=== PATIENT | female | born 1985 | race American Indian/Alaskan Native ===

== ENCOUNTER 2021-08-12 15:37 | Outpatient (CLI) | payer OTHER ==
[2021-08-12 16:15] VITALS: BP 98/61
[2021-08-12] MEDS ORDERED: ONDANSETRON 4 MG/2 ML INJ IM SCH (17:34)
[2021-08-12] MEDS ORDERED: FAMOTIDINE 20 MG/2 ML INJ IV SCH (17:40)
[2021-08-12] MEDS ORDERED: LACTATED RINGERS 1,000 ML IV ONE (18:31)
[2021-08-12 18:53] LABS: Bacteria,Urine 1+ /HPF (Negative); Bilirubin,Urine NEG (Negative); Blood,Urine NEG (Negative); Color,Urine Yellow (Yellow); Protein,Urine <15 mg/dL mg/dL (Negative); Urobilinogen,Urine < 2.0 mg/dL (<2.0)
== END 2021-08-12 19:20 | disposition home or self-care (01) ==
LOC: LD 15:37 → TRG 15:37
PROVIDERS: ATTEND Student in an Organized Health Care Education/Training Program
DX: O21.2 Late vomiting of pregnancy (principal); O26.892 Other specified pregnancy related conditions, second trimester; R10.13 Epigastric pain; O99.012 Anemia complicating pregnancy, second trimester; D64.9 Anemia, unspecified; O13.2 Gestational [pregnancy-induced] hypertension without significant proteinuria, second trimester; Z3A.24 24 weeks gestation of pregnancy
CPT/HCPCS: 59025; 81001; 96365; 96366; 96372; J2405; J3490; J7120; 96360; 96374